=== PATIENT | female | born 1990 | race Caucasian/White ===

== ENCOUNTER 2017-07-12 08:47 | Emergency (ER) | payer BC ==
[~2017-07-12] VITALS: Ht 165.1 cm; Wt 75.5 kg
[2017-07-12 08:54] VITALS: Ht 165.1 cm; Wt 75.5 kg
[2017-07-12] MEDS ORDERED: FAMOTIDINE 20 MG INJ IV STA (10:04)
[2017-07-12] MEDS ORDERED: SOD CHLORIDE 0.9% 100 ML IV STA (10:04)
[2017-07-12 10:10] LABS: URINE BLOOD (Dip) POC 1+ (NEGATIVE)
--- NOTE | 2017-07-12 10:18 | ERD ---
ER Documentation Chief Complaint Chief Complaint Patient states abdominal pain with diarrhea and vomiting HPI 26 y/o female, presents to ED, c/o acute onset of abdominal pain last night associated with fever 101, diarrhea, nausea and vomiting. The abdominal pain is described as cramping, intermittent, 5/10. The diarrhea is greenish, >10 episodes in the last 12 hours with blood and mucous. Emesis >4 episodes. Denies chills. Possible suspicious food at school yesterday. No recent traveling ROS All systems reviewed and are negative except as per history of present illness. Allergies Allergies: Coded Allergies: Penicillins (Verified Allergy, Unknown, 07/12/17) FmHx No parental history of DM, HTN or cancer Physical Exam Vitals Vital Signs Date Time Temp Pulse Resp B/P Pulse Ox O2 Delivery O2 Flow Rate FiO2 07/12/17 08:54 100.6 113 20 116/61 97 Physical Exam Const: Mild distress, dry oral mucosa Resp: Clear to auscultation bilaterally Cardio: Regular rate and rhythm, no murmurs Abd: Soft, mild tenderness to deep palpation, no peritoneal signs. Increased bowel sounds Back: No midline or flank tenderness Result Diagram: 07/12/17 1022 07/12/17 1022 Results 24 hrs Laboratory Tests Test 07/12/17 10:10 07/12/17 10:22 Bedside Urine pH (LAB) 6.5 Bedside Urine Protein (LAB) Negative Bedside Urine Glucose (UA) Negative Bedside Urine Ketones (LAB) Negative Bedside Urine Blood 1+ Bedside Urine Nitrite (LAB) Negative Bedside Urine Leukocyte Esterase (L Negative White Blood Count 18.410^3/ul Red Blood Count 4.9110^6/ul Hemoglobin 14.7g/dl Hematocrit 44.5% Mean Corpuscular Volume 90.6fl Mean Corpuscular Hemoglobin 29.9pg Mean Corpuscular Hemoglobin Concent 33.0g/dl Red Cell Distribution Width 12.7% Platelet Count 07982^3/UL Mean Platelet Volume 11.2fl Neutrophils % 80.9% Lymphocytes % 10.3% Monocytes % 8.3% Eosinophils % 0.0% Basophils % 0.1% Nucleated Red Blood Cells % 0.0/100WBC Neutrophils # 14.810^3/ul Lymphocytes # 1.910^3/ul Monocytes # 1.510^3/ul Eosinophils # 0.010^3/ul Basophils # 0.010^3/ul Nucleated Red Blood Cells # 0.010^3/ul Sodium Level 141mmol/L Potassium Level 4.1mmol/L Chloride Level 104mmol/L Carbon Dioxide Level 27mmol/L Anion Gap 14 Blood Urea Nitrogen 12mg/dl Creatinine 0.95mg/dl Glucose Level 96mg/dl Calcium Level 9.7mg/dl Total Bilirubin 0.5mg/dl Direct Bilirubin 0.00mg/dl Indirect Bilirubin 0.5mg/dl Aspartate Amino Transf (AST/SGOT) 21IU/L Alanine Aminotransferase (ALT/SGPT) 33IU/L Alkaline Phosphatase 62IU/L Total Protein 7.6g/dl Albumin 4.3g/dl Globulin 3.30g/dl Albumin/Globulin Ratio 1.30 Lipase 72U/L Current Medications Medications (Trade) Dose Ordered Sig/Delma Route PRN Reason Start Time Stop Time Status Last Admin Dose Admin Sodium Chloride (NS) 100 ml @ 100 mls/hr Q1H STAT IV 07/12/17 10:04 07/12/17 11:03 DC 07/12/17 10:29 Famotidine (Pepcid Iv) 20 mg ONCE STAT IV 07/12/17 10:04 07/12/17 10:10 DC 07/12/17 10:29 Procedures/MDM Low suspicion for acute abdomen. Physical exam unremarkable. Differential includes viral, bacterial infection, medications side effects. Most likely bacterial gastroenteritis, I will start treatment with ciprofloxacin. Labs showed: Leukocytosis >18. Per patient her baseline is 14 Results discussed with patient. The patient received IV fluids presenting overall improvement of the symptoms. We recommend f/u with PMD in 2-4 days to repeat CBC. If the doctor is unavailable and the symptoms persist or worsen, the patient should return to ED Departure Diagnosis: Primary Impression: Abdominal pain Additional Impressions: Dehydration Gastroenteritis Leukocytosis, unspecified Condition: Stable Patient Instructions: Abdominal Pain, Dehydration Comments Please schedule a follow up appointment with your primary doctor in 2 -4 days and bring all the information and prescriptions that we have given to you today. If the doctor is unavailable and the symptoms persist or worsen please return to the emergency department TORI REESE MD Jul 12, 2017 10:16
[2017-07-12 10:41] LABS: ABNORMAL IP MESSAGE 1; BASOPHILS % 0.1 % (0.0-2.0); HEMATOCRIT 44.5 % (37.0-47.0); HEMOGLOBIN 14.7 g/dl (12.0-16.0); LYMPHOCYTES # 1.9 10^3/ul (0.8-2.9); LYMPHOCYTES % 10.3 % (15.0-51.0); MEAN CORPUSCULAR HEMOGLOBIN 29.9 pg (29.0-33.0); MEAN CORPUSCULAR VOLUME 90.6 fl (82.0-101.0); MEAN PLATELET VOLUME 11.2 fl (7.4-10.4); MONOCYTE # 1.5 10^3/ul (0.3-0.9); MONOCYTES % 8.3 % (0.0-11.0); NEUTROPHIL # 14.8 10^3/ul (1.6-7.5); NEUTROPHILS % 80.9 % (39.0-77.0); PLATELET COUNT 202 10^3/UL (140-415); RED BLOOD COUNT 4.91 10^6/ul (4.20-5.40); RED CELL DISTRIBUTION WIDTH 12.7 % (11.5-14.5); WHITE BLOOD COUNT 18.4 10^3/ul (4.8-10.8)
[2017-07-12 10:45] LABS: POSITIVE DIFF @See below
[2017-07-12 11:01] LABS: ALBUMIN 4.3 g/dl (3.3-4.9); ALBUMIN/GLOBULIN RATIO 1.3; BILIRUBIN,INDIRECT 0.5 mg/dl (0-1.1); BILIRUBIN,TOTAL 0.5 mg/dl (0.2-1.3); CALCIUM 9.7 mg/dl (8.4-10.2); CREATININE 0.95 mg/dl (0.44-1.00); POTASSIUM 4.1 mmol/L (3.5-5.1); TOTAL PROTEIN 7.6 g/dl (6.1-8.1)
[2017-07-12] MEDS ORDERED: CIPR500T4 PO (12:24)
[2017-07-12] MEDS ORDERED: RANI150T9 PO (12:25)
[2017-07-12 12:36] VITALS: BP 116/61; RESP 20; TEMP 98.9
== END 2017-07-12 12:37 | disposition home or self-care (01) ==
LOC: FTE 08:47
DX: E86.0 Dehydration (principal); K52.9 Noninfective gastroenteritis and colitis, unspecified; D72.829 Elevated white blood cell count, unspecified
CPT/HCPCS: 36415; 80053; 81003; 83690; 85025; 96374; 99284; J7040